=== PATIENT | female | born 2000 | race Caucasian/White ===

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

== ENCOUNTER → 2021-08-06 | Outpatient (CLI) | payer BC ==
--- NOTE | 2021-08-06 13:25 | Diagnostic Imaging Report ---
PROCEDURE: MR imaging of the brain without contrast. TECHNIQUE: Multiplanar, multisequence MR imaging of the brain was performed without contrast. INDICATION: Dizzy spells. Nausea. COMPARISON: 12/21/2020. FINDINGS: No acute ischemia, mass, or hemorrhage. The ventricles, cortical sulci, and basilar cisterns are symmetric and unremarkable. The sellar and suprasellar regions have a normal appearance. The posterior pituitary bright spot is visualized in its normal location. The major intracranial flow voids are intact. The brainstem and posterior fossa are unremarkable. No evidence of Chiari malformation. The paranasal sinuses and mastoid air cells demonstrate normal signal characteristics. The globes and orbits are symmetric and unremarkable. The scalp and calvarium have a normal appearance. IMPRESSION: 1. No acute ischemia, mass, or hemorrhage. No focal signal abnormalities. 2. No evidence of congenital structural abnormality in the brain. Dictated by: Dictated on workstation # [id number]
== END ==
LOC: RAD 12:26
PROVIDERS: ATTEND Family Medicine
DX: R10.84 Generalized abdominal pain (principal); R42 Dizziness and giddiness; R11.0 Nausea
CPT/HCPCS: 70551

== ENCOUNTER 2021-11-07 14:33 | Emergency (ER) | payer BC ==
[~2021-11-07] VITALS: Ht 162.5 cm; Wt 72.3 kg
--- NOTE | 2021-11-07 14:46 | ED General ---
General Stated Complaint: LOC, FAINTED AND HIT HEAD,VERTIGO,NAUSEA History of Present Illness Date Seen by Provider: Nov 07, 2021 Time Seen by Provider: 14:42 Initial Comments 21-year-old female presents with some mild dizziness, nausea. Patient reports that a couple days ago she was donating blood when she fainted and hit her head on the floor. She reports that since then she has had some mild dizziness gets worse when she stands up or moves her head. She is got some nausea. She denies any vomiting. She denies any recent illnesses. Allergies and Home Medications Allergies Coded Allergies: No Known Drug Allergies (Unverified , 12/21/20) Patient Home Medication List Home Medication List Reviewed: Yes Review of Systems Review of Systems Constitutional: No chills; dizziness; No fever Respiratory: No cough, No short of breath Gastrointestinal: No abdominal pain, No diarrhea; nausea; No vomiting Genitourinary: no symptoms reported Musculoskeletal: no symptoms reported Skin: no symptoms reported Psychiatric/Neurological: No Symptoms Reported Hematologic/Lymphatic: No Symptoms Reported Immunological/Allergic: no symptoms reported Past Gbniaqq-Admrdy-Odudju Hx Seasonal Allergies Seasonal Allergies: No Past Medical History Surgeries: No Respiratory: No Cardiac: No Neurological: No Genitourinary: No Gastrointestinal: No Musculoskeletal: No Endocrine: No HEENT: No Cancer: No Psychosocial: No Integumentary: No Blood Disorders: No Physical Exam Vital Signs Vital Signs - First Documented 11/07/21 14:40 Temp 37.0 Pulse 81 Resp 16 B/P (MAP) 133/75 (94) Pulse Ox 99 O2 Delivery Room Air Capillary Refill : Height, Weight, BMI Height: '" Weight: lbs. oz. 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 Skin: Normal Color, Warm/Dry Progress/Results/Core Measures Suspected Sepsis SIRS Temperature: Pulse: Respiratory Rate: Laboratory Tests 11/07/21 15:12: White Blood Count 10.2 Blood Pressure / Mean: Laboratory Tests 11/07/21 15:12: Creatinine 0.68, Platelet Count 346, Total Bilirubin 0.2 Results/Orders Lab Results Laboratory Tests Test 11/07/21 14:55 11/07/21 15:12 Range/Units Urine Color YELLOW Urine Clarity CLOUDY Urine pH 6.5 5-9 Urine Specific [place] 1.020 1.016-1.022 Urine Protein NEGATIVE NEGATIVE Urine Glucose (UA) NEGATIVE NEGATIVE Urine Ketones NEGATIVE NEGATIVE Urine Nitrite NEGATIVE NEGATIVE Urine Bilirubin NEGATIVE NEGATIVE Urine Urobilinogen 1.0 < = 1.0 MG/DL Urine Leukocyte Esterase TRACE H NEGATIVE Urine RBC (Auto) NEGATIVE NEGATIVE Urine RBC NONE /HPF Urine WBC 25-50 H /HPF Urine Squamous Epithelial Cells >50 H /HPF Urine Crystals NONE /LPF Urine Bacteria LARGE H /HPF Urine Casts NONE /LPF Urine Mucus NEGATIVE /LPF Urine Culture Indicated NO Urine Test NEGATIVE NEGATIVE White Blood Count 10.2 4.3-11.0 10^3/uL Red Blood Count 4.09 3.80-5.11 10^6/uL Hemoglobin 10.9 L 11.5-16.0 g/dL Hematocrit 34 L 35-52 % Mean Corpuscular Volume 82 80-99 fL Mean Corpuscular Hemoglobin 27 25-34 pg Mean Corpuscular Hemoglobin Concent 32 32-36 g/dL Red Cell Distribution Width 13.3 10.0-14.5 % Platelet Count 346 130-400 10^3/uL Mean Platelet Volume 11.3 9.0-12.2 fL Immature Granulocyte % (Auto) 0 % Neutrophils (%) (Auto) 74 42-75 % Lymphocytes (%) (Auto) 16 12-44 % Monocytes (%) (Auto) 8 0-12 % Eosinophils (%) (Auto) 1 0-10 % Basophils (%) (Auto) 1 0-10 % Neutrophils # (Auto) 7.5 1.8-7.8 10^3/uL Lymphocytes # (Auto) 1.7 1.0-4.0 10^3/uL Monocytes # (Auto) 0.8 0.0-1.0 10^3/uL Eosinophils # (Auto) 0.1 0.0-0.3 10^3/uL Basophils # (Auto) 0.1 0.0-0.1 10^3/uL Immature Granulocyte # (Auto) 0.0 0.0-0.1 10^3/uL Sodium Level 138 135-145 MMOL/L Potassium Level 4.0 3.6-5.0 MMOL/L Chloride Level 103 98-107 MMOL/L Carbon Dioxide Level 24 21-32 MMOL/L Anion Gap 11 5-14 MMOL/L Blood Urea Nitrogen 13 7-18 MG/DL Creatinine 0.68 0.60-1.30 MG/DL Estimat Glomerular Filtration Rate 128 BUN/Creatinine Ratio 19 Glucose Level 106 H 70-105 MG/DL Calcium Level 9.3 8.5-10.1 MG/DL Corrected Calcium 9.1 8.5-10.1 MG/DL Total Bilirubin 0.2 0.1-1.0 MG/DL Aspartate Amino Transf (AST/SGOT) 13 5-34 U/L Alanine Aminotransferase (ALT/SGPT) 9 0-55 U/L Alkaline Phosphatase 61 40-136 U/L Total Protein 7.4 6.4-8.2 GM/DL Albumin 4.3 3.2-4.5 GM/DL My Orders Orders - KAUR,TANIKA L DO Cbc With Automated Diff (11/07/21 14:49) Comprehensive Metabolic Panel (11/07/21 14:49) Hcg,Qualitative Urine (11/07/21 14:49) Ua Culture If Indicated (11/07/21 14:49) Ct Head Wo (11/07/21 14:49) Ondansetron Injection (Zofran Injectio (11/07/21 15:00) Lactated Ringers (Lr 1000 Ml Iv Solution (11/07/21 14:49) Medications Given in ED Current Medications Medications Dose Ordered Sig/Gomez Route Start Time Stop Time Status Last Admin Dose Admin Ondansetron HCl 4 mg ONCE ONCE IVP 11/07/21 15:00 11/07/21 15:01 DC 11/07/21 15:21 4 MG Vital Signs/I&O 11/07/21 11/07/21 14:40 15:45 Temp 37.0 37.0 Pulse 81 78 Resp 16 16 B/P (MAP) 133/75 (94) 127/75 Pulse Ox 99 99 O2 Delivery Room Air Room Air Capillary Refill : Progress Note : Progress Note Patient's physical exam shows no acute dehydration or findings. Patient's labs and CT are negative. I discussed with patient I suspect she passed a mild concussion following her fall. That she should be improving over the next few days to a week. If she does not improve or symptoms worsen she should follow-up with her primary care provider for recheck. Patient was stable and discharged home Diagnostic Imaging Diagonstic Imaging: CT Plain Films/CT/US/NM/MRI: head Comments Date of Exam:11/07/21 CT HEAD WO PROCEDURE: CT head without contrast. TECHNIQUE: Multiple contiguous axial images were obtained through the brain without the use of intravenous contrast. Auto Exposure Controls were utilized during the CT exam to meet ALARA standards for radiation dose reduction. INDICATION: Vertigo, dizziness, head pain and syncope following blood donation. It resulted in a fall striking the head. COMPARISON: CT compared with exam 12/21/2020. FINDINGS: There are no abnormal extra-axial fluid collections. There is no intracranial hemorrhage. No focal or generalized cerebral edema. No mass or mass effect. No evidence for an elevation of the intracranial pressures. Orbits, sinuses and calvarium are nonacute. The basilar cisterns are patent. There has been no change. IMPRESSION: No hemorrhage, fracture, edema or acute appearing abnormalities. Reviewed: Reviewed by Me, Reviewed/Discussed Departure Impression Primary Impression: Concussion Qualified Codes: S06.0X0A - Concussion without loss of consciousness, initial encounter Additional Impression: Vasovagal syncope Disposition: 01 HOME, SELF-CARE Condition: Stable Departure-Patient Inst. Referrals: MATIAS VANCE MD (PCP/Family) Primary Care Physician Patient Instructions: Concussion, Adult ED, Fainting, Adult ED, Minor Head Injury, Adult ED Add. Discharge Instructions: Drink plenty of fluids, Tylenol ibuprofen as needed Follow-up with your primary care provider if symptoms are not improving or starting to resolve over the next 5 to 7 days TANIKA KAUR DO Nov 07, 2021 14:46
[2021-11-07] MEDS ORDERED: LACTATED RINGERS 1,000 ML IV STA (14:49)
[2021-11-07] MEDS ORDERED: ONDANSETRON 4 MG/2 ML (SDV) Z0FRAN IVP ONE (15:00)
[2021-11-07 15:01] LABS: BILIRUBIN,URINE NEGATIVE (NEGATIVE); COLOR,URINE YELLOW; GLUCOSE, URINE (UA) NEGATIVE (NEGATIVE); KETONES,URINE NEGATIVE (NEGATIVE); LEUKOCYTE ESTERASE ,URINE TRACE (NEGATIVE); NITRITE,URINE NEGATIVE (NEGATIVE); PH,URINE 6.5 (5-9); PROTEIN,URINE NEGATIVE (NEGATIVE)
[2021-11-07 15:06] LABS: BACTERIA,URINE LARGE /HPF; CLARITY,URINE CLOUDY; SQUAMOUS EPITHELIAL CELL,UR >50 /HPF; WBC,URINE 25-50 /HPF
[2021-11-07 15:15] LABS: BASOPHILS # (AUTO) 0.1 10^3/uL (0.0-0.1); BASOPHILS % (AUTO) 1 % (0-10); EOSINOPHILS # (AUTO) 0.1 10^3/uL (0.0-0.3); EOSINOPHILS % (AUTO) 1 % (0-10); HEMATOCRIT 34 % (35-52); HEMOGLOBIN 10.9 g/dL (11.5-16.0); LYMPHOCYTES # (AUTO) 1.7 10^3/uL (1.0-4.0); LYMPHOCYTES % (AUTO) 16 % (12-44); MEAN CORPUSCULAR HEMOGLOBIN 27 pg (25-34); MEAN CORPUSCULAR HGB CONC 32 g/dL (32-36); MEAN CORPUSCULAR VOLUME 82 fL (80-99); MEAN PLATELET VOLUME 11.3 fL (9.0-12.2); MONOCYTES # (AUTO) 0.8 10^3/uL (0.0-1.0); MONOCYTES % (AUTO) 8 % (0-12); NEUTROPHILS # (AUTO) 7.5 10^3/uL (1.8-7.8); NEUTROPHILS % (AUTO) 74 % (42-75); PLATELET COUNT 346 10^3/uL (130-400); WHITE BLOOD COUNT 10.2 10^3/uL (4.3-11.0)
--- NOTE | 2021-11-07 15:16 | Diagnostic Imaging Report ---
PROCEDURE: CT head without contrast. TECHNIQUE: Multiple contiguous axial images were obtained through the brain without the use of intravenous contrast. Auto Exposure Controls were utilized during the CT exam to meet ALARA standards for radiation dose reduction. INDICATION: Vertigo, dizziness, head pain and syncope following blood donation. It resulted in a fall striking the head. COMPARISON: CT compared with exam 12/21/2020. FINDINGS: There are no abnormal extra-axial fluid collections. There is no intracranial hemorrhage. No focal or generalized cerebral edema. No mass or mass effect. No evidence for an elevation of the intracranial pressures. Orbits, sinuses and calvarium are nonacute. The basilar cisterns are patent. There has been no change. IMPRESSION: No hemorrhage, fracture, edema or acute appearing abnormalities. Dictated by: Dictated on workstation # [id number]
[2021-11-07 15:30] LABS: ALBUMIN 4.3 GM/DL (3.2-4.5); BILIRUBIN,TOTAL 0.2 MG/DL (0.1-1.0); CALCIUM 9.3 MG/DL (8.5-10.1); CREATININE SERUM 0.68 MG/DL (0.60-1.30); TOTAL PROTEIN 7.4 GM/DL (6.4-8.2)
[2021-11-07 15:45] VITALS: BP 127/75
== END 2021-11-07 15:42 | disposition home or self-care (01) ==
LOC: EDUNIT# 14:33 → ER FS 14:35
DX: S06.0X9A Concussion with loss of consciousness of unspecified duration, initial encounter (principal); R55 Syncope and collapse; Z32.02 Encounter for pregnancy test, result negative; W18.30XA Fall on same level, unspecified, initial encounter
CPT/HCPCS: 36415; 70450; 80053; 81000; 84703; 85025

== ENCOUNTER 2022-11-30 16:43 | Emergency (ER) | payer BC ==
[~2022-11-30] VITALS: Ht 162.5 cm; Wt 71.9 kg
[2022-11-30] MEDS ORDERED: ONDANSETRON 4 MG/2 ML (SDV) Z0FRAN IVP STA (16:49)
[2022-11-30] MEDS ORDERED: NS IV 1000 ML 1,000 ML IV SCH (17:00)
[2022-11-30] MEDS ORDERED: PANTOPRAZOLE 40 MG (PROTONIX) VIAL IV STA (17:14)
[2022-11-30] MEDS ORDERED: KETOROLAC 15 MG/ML VIAL IVP STA (17:14)
[2022-11-30 17:16] LABS: BASOPHILS # (AUTO) 0.1 10^3/uL (0.0-0.1); BASOPHILS % (AUTO) 0 % (0-10); EOSINOPHILS # (AUTO) 0.1 10^3/uL (0.0-0.3); EOSINOPHILS % (AUTO) 1 % (0-10); HEMATOCRIT 37 % (35-52); HEMOGLOBIN 11.6 g/dL (11.5-16.0); LYMPHOCYTES # (AUTO) 1.8 10^3/uL (1.0-4.0); LYMPHOCYTES % (AUTO) 15 % (12-44); MEAN CORPUSCULAR HEMOGLOBIN 25 pg (25-34); MEAN CORPUSCULAR HGB CONC 32 g/dL (32-36); MEAN CORPUSCULAR VOLUME 80 fL (80-99); MEAN PLATELET VOLUME 11.2 fL (9.0-12.2); MONOCYTES # (AUTO) 0.8 10^3/uL (0.0-1.0); MONOCYTES % (AUTO) 6 % (0-12); NEUTROPHILS # (AUTO) 9.9 10^3/uL (1.8-7.8); NEUTROPHILS % (AUTO) 78 % (42-75); PLATELET COUNT 369 10^3/uL (130-400); WHITE BLOOD COUNT 12.7 10^3/uL (4.3-11.0)
[2022-11-30 17:19] LABS: BILIRUBIN,URINE NEGATIVE (NEGATIVE); CLARITY,URINE CLEAR; COLOR,URINE YELLOW; GLUCOSE, URINE (UA) NEGATIVE (NEGATIVE); KETONES,URINE NEGATIVE (NEGATIVE); LEUKOCYTE ESTERASE ,URINE NEGATIVE (NEGATIVE); NITRITE,URINE NEGATIVE (NEGATIVE); PROTEIN,URINE NEGATIVE (NEGATIVE)
--- NOTE | 2022-11-30 17:22 | ED GI ---
General Chief Complaint: Abdominal/GI Problems Stated Complaint: VOMITING,SEVERE PAIN ABDOMEN,SHAKES,MUSCLES TENSE Source of Information: Patient History of Present Illness Date Seen by Provider: Nov 30, 2022 Time Seen by Provider: 17:00 Initial Comments 22-year-old female presenting with complaints of 2 days of vomiting and diarrhea. This afternoon she started having epigastric abdominal pain. She reports that when she does throw up and get abdominal pain she feels like her whole body tenses up and she starts shaking. She had seen some blood when she threw up yesterday. She states that her menstrual cycles are 5 to 6 months in between her periods. She states for the last few days she has had a foul smelling brown discharge instead of normal menses. Last menstrual period was 5 to 6 months ago. She states she started a new antidepressant about 2 weeks ago after stopping Prazosin about a month ago. She denies taking other prescription medicines. Severity/Quality: Severe, Cramping Location: Epigastric Radiation: No Radiation Activities at Onset: None Modifying Factors: Improves With Other (pain comes and goes without anything making it better or worse) Associated Symptoms: No Back Pain, No Chest Pain, No Diaphoresis, No Fever/Chi lls, No Headache, No Heartburn; Nausea/Vomiting; No Rash, No Shortness of Air, No Swelling/Mass in Abdomen, No Syncope; Weakness Allergies and Home Medications Allergies Coded Allergies: pseudoephedrine (Verified Allergy, Unknown, 11/30/22) Patient Home Medication List Home Medication List Reviewed: Yes Dicyclomine HCl (Dicyclomine HCl) 10 Mg Capsule, 10 MG PO Q6H PRN for abdominal pain Prescribed by: RADHA DE LA TORRE on 11/30/221937 Ondansetron (Ondansetron Odt) 4 Mg Tab.rapdis, 4 MG PO Q6H PRN for NAUSEA/VOMITING Prescribed by: RADHA DE LA TORRE on 11/30/221937 Pantoprazole Sodium (Pantoprazole Sodium) 40 Mg Tablet.dr, 40 MG PO DAILY Prescribed by: RADHA DE LA TORRE on 11/30/221937 Review of Systems Review of Systems Constitutional: No chills, No fever EENTM: No Symptoms Reported Respiratory: No Symptoms Reported Cardiovascular: No Symptoms Reported Gastrointestinal: See HPI Genitourinary: See HPI Musculoskeletal: no symptoms reported Skin: no symptoms reported Psychiatric/Neurological: Anxiety Past Npjlllf-Xquapc-Fcapeg Hx Immunizations Up To Date First/Initial COVID19 Vaccinat: Not currently vaccinated Seasonal Allergies Seasonal Allergies: No Past Medical History Surgery/Hospitalization HX: Depression/Anxiety Surgeries: No Respiratory: No Cardiac: No Neurological: No Genitourinary: No Gastrointestinal: No Musculoskeletal: No Endocrine: No HEENT: No Cancer: No Psychosocial: No Integumentary: No Blood Disorders: No Physical Exam Vital Signs Vital Signs - First Documented 11/30/22 17:15 Temp 36.9 Pulse 81 Resp 18 B/P (MAP) 144/90 (108) Pulse Ox 100 O2 Delivery Room Air Capillary Refill : Height/Weight/BMI Height: '" Weight: lbs. oz. kg; 27.00 BMI Method: General Appearance: WD/WN, no apparent distress HEENT: PERRL/EOMI, pharynx normal Neck: non-tender, full range of motion, supple, normal inspection Respiratory: chest non-tender, lungs clear, normal breath sounds, no respiratory distress, no accessory muscle use Cardiovascular: normal peripheral pulses, regular rate, rhythm Gastrointestinal: normal bowel sounds, non tender, soft, no pulsatile mass Rectal: deferred Extremities: normal range of motion, non-tender, normal capillary refill Neurologic/Psychiatric: alert, oriented x 3 Skin: normal color, warm/dry Progress/Results/Core Measures Results/Orders Lab Results Laboratory Tests Test 11/30/22 17:05 11/30/22 17:10 Range/Units Urine Color YELLOW Urine Clarity CLEAR Urine pH 7.0 5-9 Urine Specific [place] 1.010 L 1.016-1.022 Urine Protein NEGATIVE NEGATIVE Urine Glucose (UA) NEGATIVE NEGATIVE Urine Ketones NEGATIVE NEGATIVE Urine Nitrite NEGATIVE NEGATIVE Urine Bilirubin NEGATIVE NEGATIVE Urine Urobilinogen 0.2 < = 1.0 MG/DL Urine Leukocyte Esterase NEGATIVE NEGATIVE Urine RBC (Auto) TRACE-I H NEGATIVE Urine RBC RARE /HPF Urine WBC NONE /HPF Urine Squamous Epithelial Cells 0-2 /HPF Urine Crystals NONE /LPF Urine Bacteria NEGATIVE /HPF Urine Casts NONE /LPF Urine Mucus NEGATIVE /LPF Urine Culture Indicated NO Urine Opiates Screen NEGATIVE NEGATIVE Urine Oxycodone Screen NEGATIVE NEGATIVE Urine Methadone Screen NEGATIVE NEGATIVE Urine Propoxyphene Screen NEGATIVE NEGATIVE Urine Barbiturates Screen NEGATIVE NEGATIVE Ur Tricyclic Antidepressants Screen NEGATIVE NEGATIVE Urine Phencyclidine Screen NEGATIVE NEGATIVE Urine Amphetamines Screen NEGATIVE NEGATIVE Urine Methamphetamines Screen NEGATIVE NEGATIVE Urine Benzodiazepines Screen NEGATIVE NEGATIVE Urine Cocaine Screen NEGATIVE NEGATIVE Urine Cannabinoids Screen POSITIVE H NEGATIVE White Blood Count 12.7 H 4.3-11.0 10^3/uL Red Blood Count 4.59 3.80-5.11 10^6/uL Hemoglobin 11.6 11.5-16.0 g/dL Hematocrit 37 35-52 % Mean Corpuscular Volume 80 80-99 fL Mean Corpuscular Hemoglobin 25 25-34 pg Mean Corpuscular Hemoglobin Concent 32 32-36 g/dL Red Cell Distribution Width 15.9 H 10.0-14.5 % Platelet Count 369 130-400 10^3/uL Mean Platelet Volume 11.2 9.0-12.2 fL Immature Granulocyte % (Auto) 1 % Neutrophils (%) (Auto) 78 H 42-75 % Lymphocytes (%) (Auto) 15 12-44 % Monocytes (%) (Auto) 6 0-12 % Eosinophils (%) (Auto) 1 0-10 % Basophils (%) (Auto) 0 0-10 % Neutrophils # (Auto) 9.9 H 1.8-7.8 10^3/uL Lymphocytes # (Auto) 1.8 1.0-4.0 10^3/uL Monocytes # (Auto) 0.8 0.0-1.0 10^3/uL Eosinophils # (Auto) 0.1 0.0-0.3 10^3/uL Basophils # (Auto) 0.1 0.0-0.1 10^3/uL Immature Granulocyte # (Auto) 0.1 0.0-0.1 10^3/uL Sodium Level 140 135-145 MMOL/L Potassium Level 4.0 3.6-5.0 MMOL/L Chloride Level 104 98-107 MMOL/L Carbon Dioxide Level 25 21-32 MMOL/L Anion Gap 11 5-14 MMOL/L Blood Urea Nitrogen 10 7-18 MG/DL Creatinine 0.81 0.60-1.30 MG/DL Estimat Glomerular Filtration Rate 106 BUN/Creatinine Ratio 12 Glucose Level 91 70-105 MG/DL Calcium Level 9.8 8.5-10.1 MG/DL Corrected Calcium 8.5-10.1 MG/DL Magnesium Level 2.0 1.6-2.4 MG/DL Total Bilirubin 0.2 0.1-1.0 MG/DL Aspartate Amino Transf (AST/SGOT) 20 5-34 U/L Alanine Aminotransferase (ALT/SGPT) 15 0-55 U/L Alkaline Phosphatase 56 40-136 U/L Total Protein 8.1 6.4-8.2 GM/DL Albumin 4.8 H 3.2-4.5 GM/DL Lipase 24 8-78 U/L Acetaminophen Level < 10 L 10-30 UG/ML Serum Alcohol < 10 <10 MG/DL My Orders Orders - RADHA DE LA TORRE MD Ua Culture If Indicated (11/30/22 16:49) Cbc With Automated Diff (11/30/22 16:49) Comprehensive Metabolic Panel (11/30/22 16:49) Alcohol (11/30/22 16:49) Drug Screen Stat (Urine) (11/30/22 16:49) Acetaminophen (11/30/22 16:49) Ed Iv/Invasive Line Start (11/30/22 16:49) Ns Iv 1000 Ml (Sodium Chloride 0.9%) (11/30/22 17:00) Urine Bedside (11/30/22 16:49) Lipase (11/30/22 16:49) Ondansetron Injection (Zofran Injectio (11/30/22 16:49) Pantoprazole Injection (Protonix Injecti (11/30/22 17:14) Ketorolac Injection (Toradol Injection) (11/30/22 17:14) Ct Abdomen/Pelvis W (11/30/22 17:15) Magnesium (11/30/22 17:16) Iohexol Injection (Omnipaque 350 Mg/Ml 1 (11/30/22 18:15) Received Contrast (Hold Metformin- Contr (11/30/22 18:15) Ns (Ivpb) (Sodium Chloride 0.9% Ivpb Bag (11/30/22 18:15) Rx-Dicyclomine Capsule (Rx-Bentyl Capsul (11/30/22 19:45) Rx-Ondansetron Po (Rx-Zofran Po) (11/30/22 19:45) Medications Given in ED Current Medications Medications Dose Ordered Sig/Gomez Route Start Time Stop Time Status Last Admin Dose Admin Dicyclomine HCl 10 mg Q6H PRN PO 11/30/22 19:45 11/30/22 19:49 DC 11/30/22 19:45 10 MG Iohexol 100 ml ONCE ONCE IV 11/30/22 18:15 11/30/22 18:16 DC 11/30/22 18:08 75 ML Ondansetron HCl 4 mg Q6H PRN PO 11/30/22 19:45 11/30/22 19:49 DC 11/30/22 19:45 4 MG Sodium Chloride 100 ml ONCE ONCE IV 11/30/22 18:15 11/30/22 18:16 DC 11/30/22 18:08 100 ML Vital Signs/I&O 11/30/22 11/30/22 17:15 19:49 Temp 36.9 Pulse 81 73 Resp 18 18 B/P (MAP) 144/90 (108) 133/75 Pulse Ox 100 100 O2 Delivery Room Air Room Air Progress Progress Note #1: Progress Note Potential diagnosis of gastritis, peptic ulcer disease, gastroenteritis, viral syndrome, colitis, diverticulitis, pyelonephritis, . obtain peripheral IV access and send labs for complete blood count, comprehensive metabolic profile, lipase, urine drug screen, urinalysis, alcohol, acetaminophen, magnesium. Urine bedside test. CT scan of the abdomen pelvis with IV contrast to evaluate for acute pathology in the belly. Administer normal saline 1 L IV fluid bolus for hydration, Toradol 15 mg IV for pain, pantoprazole 40 mg IV for possible gastritis, Zofran 4 mg IV for nausea and vomiting. Progress Note #2: Progress Note Patient was having No acute significant abnormality on complete blood count or comprehensive metabolic profile to account for symptoms. Her urinalysis was very dilute and did not show signs of infection. Her CT scan of the abdomen and pelvis was negative for acute process. Encourage follow-up with primary care and may need to see a surgeon on-call about possible EGD or scope done to look for signs of pain. Advised that she can use [id number] antacids or fill the prescription for Protonix 40 mg once a day. Use the Zofran dissolving tablets to help with severe nausea and vomiting. For abdominal cramping and spasms try the Bentyl or dicyclomine 10 mg every 6 hours as needed. Diagnostic Imaging Diagonstic Imaging: CT Plain Films/CT/US/NM/MRI: abdomen, pelvis Comments [facility], [place] NAME: SEKOU DO [facility] REC#: [id number] PT STATUS: REG ER : 2000 PHYSICIAN: RADHA DE LA TORRE MD ADMIT DATE: 11/30/22/ER FS Signed Date of Exam:11/30/22 CT ABDOMEN/PELVIS W PROCEDURE: CT abdomen and pelvis with contrast. TECHNIQUE: Multiple contiguous axial images were obtained through the abdomen and pelvis after administration of intravenous contrast. Auto Exposure Controls were utilized during the CT exam to meet ALARA standards for radiation dose reduction. All CT scans use one or more of the following dose optimizing techniques: automated exposure control, MA and/or KvP adjustment based on patient size and exam type or iterative reconstruction. INDICATION: Abdominal pain with nausea and vomiting and diarrhea. COMPARISON: No prior studies are available for comparison. FINDINGS: Lung bases are clear. Liver and gallbladder are unremarkable. There is no biliary ductal dilatation. Pancreas and spleen are unremarkable. No adrenal mass is detected. Kidneys are unremarkable. There is no hydronephrosis. Aorta is nonaneurysmal. The small and large bowel loops are normal in caliber. There is no evidence of obstruction. Bladder is unremarkable. The uterus and ovaries appear unremarkable. There is no free fluid. No inflammatory changes are identified. IMPRESSION: Unremarkable CT of the abdomen and pelvis with contrast. No acute features detected. Dictated by: Dictated on workstation # [id number] Dict: 11/30/224 Trans: 11/30/224 AS6 [id number] Interpreted by: ANDREW BAILEY MD Electronically signed by: ANDREW BAILEY MD 11/30/22 1844 Reviewed: Reviewed by Me Departure Impression Primary Impression: Epigastric abdominal pain Additional Impression: Nausea vomiting and diarrhea Disposition: 01 HOME, SELF-CARE Condition: Stable Departure-Patient Inst. Decision time for Depature: 19:34 Referrals: MATIAS VANCE MD (PCP/Family) Primary Care Physician Patient Instructions: Nausea and Vomiting, Adult ED, Gastritis ED, Abdominal Pain, Adult ED Add. Discharge Instructions: Try to stay well-hydrated and follow a bland or liquid diet for the next 24 hours Hope your stomach settled. Take the medications to help with nausea as well as abdominal spasms and cramping. Take the acid reducing medicine in case this is related to gastritis or an ulcer. Follow-up through the clinic or with the surgeon as you may need to have a scope to look for ulcers or inflammation inside the stomach or colon. All discharge instructions reviewed with patient and/or family. Voiced understanding. Scripts Pantoprazole Sodium (Pantoprazole Sodium) 40 Mg Tablet.dr 40 MG PO DAILY for 30 Days, #30 TAB 0 Refills Prov: RADHA DE LA TORRE MD 11/30/22 Ondansetron (Ondansetron Odt) 4 Mg Tab.rapdis 4 MG PO Q6H PRN for NAUSEA/VOMITING for 3 Days, #12 TAB 0 Refills Prov: RADHA DE LA TORRE MD 11/30/22 Dicyclomine HCl (Dicyclomine HCl) 10 Mg Capsule 10 MG PO Q6H PRN for abdominal pain for 15 Days, #60 CAP 0 Refills Prov: RADHA DE LA TORRE MD 11/30/22 Work/School Note: Work Release Form Date Seen in the Emergency Department: Nov 30, 2022 Return to Work: Dec 01, 2022 Restrictions: Return-No Vomiting(24hrs) RADHA DE LA TORRE MD Nov 30, 2022 17:22
[2022-11-30 17:29] LABS: AMPHETAMINE SCREEN, URINE NEGATIVE (NEGATIVE); BARBITURATE SCREEN URINE NEGATIVE (NEGATIVE); BENZODIAZEPINES SCREEN URINE NEGATIVE (NEGATIVE); CANNABINOID SCREEN, URINE POSITIVE (NEGATIVE); COCAINE SCREEN URINE NEGATIVE (NEGATIVE); METHADONE STAT NEGATIVE (NEGATIVE); OPIATE SCREEN URINE NEGATIVE (NEGATIVE); OXYCODONE STAT NEGATIVE (NEGATIVE); PROPOXYPHENE STAT NEGATIVE (NEGATIVE); TRICYCLIC ANTIDEPRESSANTS SCRE NEGATIVE (NEGATIVE)
[2022-11-30 17:30] LABS: BACTERIA,URINE NEGATIVE /HPF; RBC,URINE RARE /HPF; SQUAMOUS EPITHELIAL CELL,UR 0-2 /HPF
[2022-11-30 17:42] LABS: BUN/CREATININE RATIO 12; CALCIUM 9.8 MG/DL (8.5-10.1); CARBON DIOXIDE 25 MMOL/L (21-32); CHLORIDE 104 MMOL/L (98-107); CREATININE SERUM 0.81 MG/DL (0.60-1.30); GFR ESTIMATED 106; GLUCOSE 91 MG/DL (70-105); SODIUM 140 MMOL/L (135-145)
[2022-11-30 17:43] LABS: ACETAMINOPHEN < 10 UG/ML (10-30); ALANINE AMINOTRANSFERASE 15 U/L (0-55); ALBUMIN 4.8 GM/DL (3.2-4.5); ALKALINE PHOSPHATASE 56 U/L (40-136); BILIRUBIN,TOTAL 0.2 MG/DL (0.1-1.0); TOTAL PROTEIN 8.1 GM/DL (6.4-8.2)
[2022-11-30] MEDS ORDERED: HOLD METFORMIN - RECEIVED CONTRAST 20 ML VIAL IV SCH (18:15)
[2022-11-30] MEDS ORDERED: IOHEXOL 350 MG/ML 100 ML (OMNIPAQUE 350) VIAL IV ONE (18:15)
[2022-11-30] MEDS ORDERED: NS 100 ML (IVPB) BAG IV ONE (18:15)
--- NOTE | 2022-11-30 18:22 | Diagnostic Imaging Report ---
PROCEDURE: CT abdomen and pelvis with contrast. TECHNIQUE: Multiple contiguous axial images were obtained through the abdomen and pelvis after administration of intravenous contrast. Auto Exposure Controls were utilized during the CT exam to meet ALARA standards for radiation dose reduction. All CT scans use one or more of the following dose optimizing techniques: automated exposure control, MA and/or KvP adjustment based on patient size and exam type or iterative reconstruction. INDICATION: Abdominal pain with nausea and vomiting and diarrhea. COMPARISON: No prior studies are available for comparison. FINDINGS: Lung bases are clear. Liver and gallbladder are unremarkable. There is no biliary ductal dilatation. Pancreas and spleen are unremarkable. No adrenal mass is detected. Kidneys are unremarkable. There is no hydronephrosis. Aorta is nonaneurysmal. The small and large bowel loops are normal in caliber. There is no evidence of obstruction. Bladder is unremarkable. The uterus and ovaries appear unremarkable. There is no free fluid. No inflammatory changes are identified. IMPRESSION: Unremarkable CT of the abdomen and pelvis with contrast. No acute features detected. Dictated by: Dictated on workstation # [id number]
[2022-11-30] MEDS ORDERED: PANT40TA52 PO (19:38)
[2022-11-30] MEDS ORDERED: ONDA4TAB11 PO (19:38)
[2022-11-30] MEDS ORDERED: DICY10CA12 PO (19:38)
[2022-11-30] MEDS ORDERED: RX-DICYCLOMINE 10 MG (BENTYL) CAP PPK#4 PO PRN (19:45)
[2022-11-30] MEDS ORDERED: RX-ONDANSETRON 4 MG ODT (ZOFRAN) PPK #4 PO PRN (19:45)
[2022-11-30 19:49] VITALS: BP 133/75
== END 2022-11-30 19:48 | disposition home or self-care (01) ==
LOC: EDUNIT# 16:43 → ER FS 16:45
DX: R10.13 Epigastric pain (principal); R11.2 Nausea with vomiting, unspecified; R19.7 Diarrhea, unspecified; Z28.310 Unvaccinated for COVID-19
CPT/HCPCS: 36415; 74177; 80053; 80306; 81000; 83690; 83735; 84703; 85025; 99284; G0480 ×2; 80320; 80329; Q9967

== ENCOUNTER 2022-12-27 09:33 | Emergency (ER) | payer BC ==
[~2022-12-27 09:33] MED LIST: DICY10CA12 PO; ONDA4TAB11 PO; PANT40TA52 PO
[2022-12-27] MEDS ORDERED: ONDA8TAB13 SL (09:54)
--- NOTE | 2022-12-27 09:55 | ED GI ---
General Chief Complaint: Abdominal/GI Problems Stated Complaint: VOMITING Nursing Triage Note: PT REPORTS SHE STARTED VOMITING UNDIGESTED FOOD, THEN BILE, THEN THE WATER SHE WAS DRINKING AT ABOUT 2100 LAST PM. SHE HAS NOT TAKEN ANYTHING FOR THE VOMITING. Source of Information: Patient, Family (MOTHER) Exam Limitations: No Limitations History of Present Illness Date Seen by Provider: Dec 27, 2022 Time Seen by Provider: 09:45 Initial Comments 22-year-old female who is otherwise healthy presents to the emergency department today for nausea and vomiting. Symptoms started at 9 PM last night and have been persistent through the evening. Emesis is nonbloody nonbilious. She has had this happen to her several times in the past. She states the last time she was here they gave her nausea medicine but she ran out. She was supposed to schedule appointment for endoscopy follow-up but states the appointment has been rescheduled a couple of times when she has not yet made it. She denies any fevers or chills. No abdominal pain. She is currently on her menstrual cycle. No urinary symptoms. All other systems reviewed and negative except documented per HPI. Voice recognition software was used to help create this chart Allergies and Home Medications Allergies Coded Allergies: pseudoephedrine (Verified Allergy, Unknown, 11/30/22) Patient Home Medication List Home Medication List Reviewed: Yes Dicyclomine HCl (Dicyclomine HCl) 10 Mg Capsule, 10 MG PO Q6H PRN for abdominal pain Prescribed by: RADHA DE LA TORRE on 11/30/221937 Ondansetron (Ondansetron Odt) 4 Mg Tab.rapdis, 4 MG PO Q6H PRN for NAUSEA/VOMITING Prescribed by: RADHA DE LA TORRE on 11/30/221937 Pantoprazole Sodium (Pantoprazole Sodium) 40 Mg Tablet.dr, 40 MG PO DAILY Prescribed by: RADHA DUNHAMRT on 11/30/221937 Review of Systems Review of Systems Constitutional: see HPI Past Ongwohz-Vzqlvs-Ggstcx Hx Patient Social History Tobacco Use?: No Use of E-Cig and/or Vaping dev: Yes E-Cig or Vaping type used: Nicotine, Marijuana Use of E-Cig and/or Vaping Jesus: Current Everyday User Substance use?: No Alcohol Use?: Yes Alcohol Frequency: Once in a while Pt feels they are or have been: No Immunizations Up To Date First/Initial COVID19 Vaccinat: Not currently vaccinated Second COVID19 Vaccination Melvin: Not currently vaccinated Third COVID19 Vaccination Date: Not currently vaccinated Seasonal Allergies Seasonal Allergies: No Past Medical History Surgery/Hospitalization HX: Depression/Anxiety Surgeries: No Respiratory: No Cardiac: No Neurological: No Genitourinary: No Gastrointestinal: No Musculoskeletal: No Endocrine: No HEENT: No Cancer: No Psychosocial: No Integumentary: No Blood Disorders: No Family Medical History Reviewed Nursing Family Hx No Pertinent Family Hx Physical Exam Vital Signs Vital Signs - First Documented 12/27/22 09:35 Temp 36.8 Pulse 76 Resp 16 B/P (MAP) 131/81 (98) Pulse Ox 100 O2 Delivery Room Air Capillary Refill : Less Than 3 Seconds Height/Weight/BMI Height: '" Weight: lbs. oz. kg; 27.00 BMI Method: General Appearance: WD/WN, no apparent distress HEENT: normal ENT inspection, pharynx normal Neck: full range of motion, supple Respiratory: chest non-tender, lungs clear, normal breath sounds, no respiratory distress, no accessory muscle use Cardiovascular: regular rate, rhythm, no edema, no murmur Gastrointestinal: normal bowel sounds, non tender, soft, no organomegaly Neurologic/Psychiatric: alert, oriented x 3 Skin: normal color, warm/dry Progress/Results/Core Measures Results/Orders My Orders Orders - RAJI VÁSQUEZ DO Diphenhydramine Injection (Benadryl Inje (12/27/22 10:00) Ondansetron Injection (Zofran Injectio (12/27/22 10:00) Vital Signs/I&O 12/27/22 09:35 Temp 36.8 Pulse 76 Resp 16 B/P (MAP) 131/81 (98) Pulse Ox 100 O2 Delivery Room Air Blood Pressure Mean: 98 Departure Communication (Admissions) Patient is hemodynamically stable. No abdominal pain and a normal exam otherwise. Vital signs are normal. No vomiting while she has been here. She is given IM Benadryl and IM Zofran and discharged with p.o. Zofran to go home. Recommended follow-up with general surgery for the previously mentioned endoscopy. No indication for imaging, IV fluids or labs at this time. Bedside test is negative. Impression Primary Impression: Vomiting Qualified Codes: R11.2 - Nausea with vomiting, unspecified Disposition: HOME, SELF-CARE Condition: Stable Departure-Patient Inst. Referrals: JOSE MARCELO APRN (PCP) Primary Care Physician [facility] (Family) Primary Care Physician STEPHANY HUBER DO Patient Instructions: Nausea and Vomiting, Adult Scripts Ondansetron (Ondansetron Odt) 8 Mg Tab.rapdis 8 MG SL Q6H PRN for NAUSEA/VOMITING for 10 Days, #40 TAB Prov: RAJI VÁSQUEZ DO 12/27/22 RAJI VÁSQUEZ DO Dec 27, 2022 09:55
[2022-12-27] MEDS ORDERED: diphenhydrAMINE 50 MG/ML INJ (BENADRYL) IM ONE (10:00)
[2022-12-27] MEDS ORDERED: ONDANSETRON 4 MG/2 ML (SDV) Z0FRAN IM ONE (10:00)
[2022-12-27 10:02] VITALS: BP 131/81
== END 2022-12-27 10:03 | disposition home or self-care (01) ==
LOC: EDUNIT# 09:33 → ER FS 09:34
DX: R11.2 Nausea with vomiting, unspecified (principal); F17.290 Nicotine dependence, other tobacco product, uncomplicated; Z28.310 Unvaccinated for COVID-19
CPT/HCPCS: 84703; 99284

== ENCOUNTER 2022-12-27 17:38 | Emergency (ER) | payer BC ==
[~2022-12-27 17:38] MED LIST changes: +ONDA8TAB13 SL
--- NOTE | 2022-12-27 17:47 | ED General ---
General Chief Complaint: General Problems/Pain Stated Complaint: MEMORY LOSS Source of Information: Patient, Family (mother) Exam Limitations: No Limitations History of Present Illness Date Seen by Provider: Dec 27, 2022 Time Seen by Provider: 17:36 Initial Comments 22-year-old female presents to the emergency department today for "memory loss." Mother states she did not remember just that she gave her years ago and seems slightly confused this afternoon at about 4:00. Notably she was seen in our emergency department this morning for nausea and vomiting which is a chronic problem for her. She was given IM Benadryl and IM Zofran. Mother is concerned because she recently started back on mirtazapine. She usually takes it in the evening but she states she is already taken her dose today, though she does not remember taking it. Fevers chills or neck stiffness. She has had nausea that has continued but she has not vomited since she was seen this morning. All other systems reviewed and negative except documented per HPI. Voice recognition software was used to help create this chart Allergies and Home Medications Allergies Coded Allergies: pseudoephedrine (Verified Allergy, Unknown, 11/30/22) Patient Home Medication List Home Medication List Reviewed: Yes Dicyclomine HCl (Dicyclomine HCl) 10 Mg Capsule, 10 MG PO Q6H PRN for abdominal pain Prescribed by: RADHA DE LA TORRE on 11/30/221937 Ondansetron (Ondansetron Odt) 4 Mg Tab.rapdis, 4 MG PO Q6H PRN for NAUSEA/VOMITING Prescribed by: RADHA DUNHAMRT on 11/30/221937 Ondansetron (Ondansetron Odt) 8 Mg Tab.rapdis, 8 MG SL Q6H PRN for NAUSEA/VOMITING Prescribed by: RAJI VÁSQUEZ MD on 12/27/22 0954 Pantoprazole Sodium (Pantoprazole Sodium) 40 Mg Tablet.dr, 40 MG PO DAILY Prescribed by: RADHA DE LA TORRE on 11/30/221937 Review of Systems Review of Systems Constitutional: see HPI Past Cluftnt-Cmtqcq-Rsrqzi Hx Patient Social History Tobacco Use?: No Use of E-Cig and/or Vaping dev: Yes E-Cig or Vaping type used: Nicotine, Marijuana Substance use?: No Alcohol Use?: Yes Alcohol Frequency: Once in a while Pt feels they are or have been: No Immunizations Up To Date First/Initial COVID19 Vaccinat: Not currently vaccinated Second COVID19 Vaccination Melvin: Not currently vaccinated Third COVID19 Vaccination Date: Not currently vaccinated Seasonal Allergies Seasonal Allergies: No Past Medical History Surgery/Hospitalization HX: Depression/Anxiety Surgeries: No Respiratory: No Cardiac: No Neurological: No Genitourinary: No Gastrointestinal: No Musculoskeletal: No Endocrine: No HEENT: No Cancer: No Psychosocial: No Integumentary: No Blood Disorders: No Family Medical History No Pertinent Family Hx Physical Exam Vital Signs Vital Signs - First Documented 12/27/22 17:40 Temp 36.1 Pulse 89 Resp 16 B/P (MAP) 158/95 (116) Pulse Ox 100 O2 Delivery Room Air Capillary Refill : Height, Weight, BMI Height: '" Weight: lbs. oz. kg; 27.00 BMI Method: General Appearance: No Apparent Distress, WD/WN HEENT: PERRL/EOMI, TMs Normal, Normal ENT Inspection, Pharynx Normal Neck: Full Range of Motion, Normal Inspection, Non Tender, Supple Respiratory: Chest Non Tender, Lungs Clear, Normal Breath Sounds, No Accessory Muscle Use, No Respiratory Distress Cardiovascular: Regular Rate, Rhythm, No Murmur Gastrointestinal: Normal Bowel Sounds, No Organomegaly, No Pulsatile Mass, Non Tender, Soft Extremity: Normal Capillary Refill, Normal Inspection, Normal Range of Motion, Non Tender, No Calf Tenderness Neurologic/Psychiatric: Alert, Oriented x3, No Motor/Sensory Deficits, Normal Mood/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, 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 as Tested Skin: Normal Color, Warm/Dry Progress/Results/Core Measures Suspected Sepsis SIRS Temperature: Pulse: Respiratory Rate: Laboratory Tests 12/27/22 17:50: White Blood Count 12.3H Blood Pressure / Mean: Laboratory Tests 12/27/22 17:50: Creatinine 0.69, Platelet Count 386 Results/Orders Lab Results Laboratory Tests Test 12/27/22 17:50 Range/Units White Blood Count 12.3 H 4.3-11.0 10^3/uL Red Blood Count 4.69 3.80-5.11 10^6/uL Hemoglobin 11.5 11.5-16.0 g/dL Hematocrit 37 35-52 % Mean Corpuscular Volume 80 80-99 fL Mean Corpuscular Hemoglobin 25 25-34 pg Mean Corpuscular Hemoglobin Concent 31 L 32-36 g/dL Red Cell Distribution Width 15.8 H 10.0-14.5 % Platelet Count 386 130-400 10^3/uL Mean Platelet Volume 11.0 9.0-12.2 fL Immature Granulocyte % (Auto) 1 % Neutrophils (%) (Auto) 73 42-75 % Lymphocytes (%) (Auto) 17 12-44 % Monocytes (%) (Auto) 9 0-12 % Eosinophils (%) (Auto) 1 0-10 % Basophils (%) (Auto) 0 0-10 % Neutrophils # (Auto) 9.0 H 1.8-7.8 10^3/uL Lymphocytes # (Auto) 2.1 1.0-4.0 10^3/uL Monocytes # (Auto) 1.1 H 0.0-1.0 10^3/uL Eosinophils # (Auto) 0.1 0.0-0.3 10^3/uL Basophils # (Auto) 0.0 0.0-0.1 10^3/uL Immature Granulocyte # (Auto) 0.1 0.0-0.1 10^3/uL Sodium Level 138 135-145 MMOL/L Potassium Level 3.5 L 3.6-5.0 MMOL/L Chloride Level 103 98-107 MMOL/L Carbon Dioxide Level 24 21-32 MMOL/L Anion Gap 11 5-14 MMOL/L Blood Urea Nitrogen 9 7-18 MG/DL Creatinine 0.69 0.60-1.30 MG/DL Estimat Glomerular Filtration Rate 127 BUN/Creatinine Ratio 13 Glucose Level 111 H 70-105 MG/DL Calcium Level 8.9 8.5-10.1 MG/DL My Orders Orders - RAJI VÁSQUEZ DO Cbc With Automated Diff (12/27/22 17:47) Basic Metabolic Panel (12/27/22 17:47) Vital Signs/I&O 12/27/22 17:40 Temp 36.1 Pulse 89 Resp 16 B/P (MAP) 158/95 (116) Pulse Ox 100 O2 Delivery Room Air Capillary Refill : Departure Communication (Admissions) Patient is hemodynamically stable. Labs are normal outside of very mild hypok alemia, 3.5. She is alert, oriented and not confused here. I think her symptoms are likely combination of mirtazapine and Benadryl. She does appear to have taken directly and she was supposed to she states she may have smoked marijuana with this as well but does not recall. Regardless there is no indication for an emergent medical condition at this time she will be discharged in stable condition with close follow-up. Impression Primary Impression: Confusion Disposition: 01 HOME, SELF-CARE Condition: Stable Departure-Patient Inst. Referrals: JOSE MARCELO APRN (PCP) Primary Care Physician [facility] (Family) Primary Care Physician Add. Discharge Instructions: There is no indication of emergent medical condition at this time. I think your symptoms are combination of Benadryl plus mirtazapine. Increase your fluids at home, ice. Do not take mirtazapine tonight. Return to the emergency department for any severe concerns. Follow-up with your primary doctor for any nonemergent needs. All discharge instructions reviewed with patient and/or family. Voiced understanding. RAJI VÁSQUEZ DO Dec 27, 2022 17:47
[2022-12-27 18:00] LABS: BASOPHILS % (AUTO) 0 % (0-10); EOSINOPHILS # (AUTO) 0.1 10^3/uL (0.0-0.3); EOSINOPHILS % (AUTO) 1 % (0-10); HEMATOCRIT 37 % (35-52); HEMOGLOBIN 11.5 g/dL (11.5-16.0); LYMPHOCYTES # (AUTO) 2.1 10^3/uL (1.0-4.0); LYMPHOCYTES % (AUTO) 17 % (12-44); MEAN CORPUSCULAR HEMOGLOBIN 25 pg (25-34); MEAN CORPUSCULAR HGB CONC 31 g/dL (32-36); MEAN CORPUSCULAR VOLUME 80 fL (80-99); MONOCYTES # (AUTO) 1.1 10^3/uL (0.0-1.0); MONOCYTES % (AUTO) 9 % (0-12); NEUTROPHILS % (AUTO) 73 % (42-75); PLATELET COUNT 386 10^3/uL (130-400); WHITE BLOOD COUNT 12.3 10^3/uL (4.3-11.0)
[2022-12-27 18:20] LABS: CALCIUM 8.9 MG/DL (8.5-10.1); CREATININE SERUM 0.69 MG/DL (0.60-1.30); POTASSIUM 3.5 MMOL/L (3.6-5.0)
[2022-12-27 18:25] VITALS: BP 158/95
== END 2022-12-27 18:25 | disposition home or self-care (01) ==
LOC: EDUNIT# 17:38 → ER FS 17:40
DX: R41.0 Disorientation, unspecified (principal); E87.6 Hypokalemia; R11.2 Nausea with vomiting, unspecified; F17.290 Nicotine dependence, other tobacco product, uncomplicated; Z28.310 Unvaccinated for COVID-19
CPT/HCPCS: 36415; 80048; 85025

== ENCOUNTER 2023-06-22 19:54 | Emergency (ER) | payer BC ==
[~2023-06-22] VITALS: Ht 162 cm; Wt 69.5 kg
[~2023-06-22 19:54] MED LIST changes: +DICY-11 PO; -DICY10CA12 PO
[2023-06-22 20:06] VITALS: BP 136/102
[2023-06-22] MEDS ORDERED: NS IV 1000 ML 1,000 ML IV STA (20:11)
[2023-06-22] MEDS ORDERED: ONDANSETRON INJECTION 4 MG/2 ML (SDV) IVP STA (20:11)
[2023-06-22] MEDS ORDERED: KETOROLAC INJ 15 MG/ML VIAL IVP STA (20:11)
[2023-06-22 20:21] LABS: BASOPHILS # (AUTO) 0.1 10^3/uL (0.0-0.1); BASOPHILS % (AUTO) 0 % (0-10); EOSINOPHILS # (AUTO) 0.1 10^3/uL (0.0-0.3); EOSINOPHILS % (AUTO) 1 % (0-10); HEMATOCRIT 41 % (35-52); HEMOGLOBIN 12.7 g/dL (11.5-16.0); LYMPHOCYTES # (AUTO) 1.5 10^3/uL (1.0-4.0); LYMPHOCYTES % (AUTO) 12 % (12-44); MEAN CORPUSCULAR HEMOGLOBIN 26 pg (25-34); MEAN CORPUSCULAR HGB CONC 31 g/dL (32-36); MEAN CORPUSCULAR VOLUME 84 fL (80-99); MEAN PLATELET VOLUME 11.1 fL (9.0-12.2); MONOCYTES # (AUTO) 0.8 10^3/uL (0.0-1.0); MONOCYTES % (AUTO) 7 % (0-12); NEUTROPHILS # (AUTO) 9.7 10^3/uL (1.8-7.8); NEUTROPHILS % (AUTO) 79 % (42-75); PLATELET COUNT 324 10^3/uL (130-400); WHITE BLOOD COUNT 12.3 10^3/uL (4.3-11.0)
[2023-06-22 20:23] LABS: BILIRUBIN,URINE NEGATIVE (NEGATIVE); CLARITY,URINE CLOUDY; COLOR,URINE YELLOW; GLUCOSE, URINE (UA) NEGATIVE (NEGATIVE); KETONES,URINE NEGATIVE (NEGATIVE); LEUKOCYTE ESTERASE ,URINE NEGATIVE (NEGATIVE); NITRITE,URINE NEGATIVE (NEGATIVE); PROTEIN,URINE TRACE (NEGATIVE)
[2023-06-22 20:40] LABS: ALANINE AMINOTRANSFERASE 10 U/L (0-55); ALBUMIN 4.6 GM/DL (3.2-4.5); ALKALINE PHOSPHATASE 50 U/L (40-136); BILIRUBIN,TOTAL 0.3 MG/DL (0.1-1.0); BUN/CREATININE RATIO 19; CALCIUM 9.3 MG/DL (8.5-10.1); CARBON DIOXIDE 24 MMOL/L (21-32); CHLORIDE 103 MMOL/L (98-107); GFR ESTIMATED 125; GLUCOSE 90 MG/DL (70-105); LIPASE 27 U/L (8-78); POTASSIUM 4.3 MMOL/L (3.6-5.0); SODIUM 138 MMOL/L (135-145)
[2023-06-22 20:44] LABS: BACTERIA,URINE NEGATIVE /HPF; RBC,URINE >100 /HPF
[2023-06-22] MEDS ORDERED: ONDA8TAB13 SL (20:52)
--- NOTE | 2023-06-22 20:53 | ED General ---
General Chief Complaint: General Problems/Pain Stated Complaint: CHILLS,NAUSEA,HEAD PAIN Source of Information: Patient History of Present Illness Date Seen by Provider: Jun 22, 2023 Time Seen by Provider: 20:04 Initial Comments 23-year-old female presenting with complaints of chills, headache, nausea and vomiting. She had been taking antibiotics since last Tuesday for UTI diagnosed at urgent care. She had missed a few doses of her antibiotics and still has a day or 2 left. She also takes a medicine for acid. She started feeling bad today and felt like she was getting fever and chills. She did not take her pressure but just felt warm and had chills. She felt like she was getting a headache throughout the day. She has not been able to eat or drink well because of the nausea and vomiting. She started her menstrual cycle 2 days ago. She denies any diarrhea or change in her bowels. Timing/Duration: 1-2 Days Severity: Moderate Modifying Factors: worse with Eating Associated Systoms: No Chest Pain, No Cough, No Diaphoresis; Fever/Chills (subjective), Headaches; No Loss of Appetite; Malaise, Nausea/Vomiting; No Seizure, No Shortness of Air, No Syncope, No Weakness Allergies and Home Medications Allergies Coded Allergies: pseudoephedrine (Verified Allergy, Unknown, 11/30/22) Patient Home Medication List Home Medication List Reviewed: Yes Dicyclomine HCl (Dicyclomine HCl) 10 Mg Capsule, 10 MG PO Q6H PRN for abdominal pain Prescribed by: RADHA DE LA TORRE on 11/30/221937 Ondansetron (Ondansetron Odt) 4 Mg Tab.rapdis, 4 MG PO Q6H PRN for NAUSEA/VOMITING Prescribed by: RADHA DE LA TORRE on 11/30/221937 Ondansetron (Ondansetron Odt) 8 Mg Tab.rapdis, 8 MG SL Q6H PRN for NAUSEA/VOMITING Prescribed by: RAJI VÁSQUEZ MD on 12/27/22953 Ondansetron (Ondansetron Odt) 8 Mg Tab.rapdis, 8 MG SL Q6H PRN for NAUSEA/VOMITING Prescribed by: RADHA DE LA TORRE on 06/22/232051 Pantoprazole Sodium (Pantoprazole Sodium) 40 Mg Tablet.dr, 40 MG PO DAILY Prescribed by: RADHA DE LA TORRE on 11/30/221937 Review of Systems Review of Systems Constitutional: see HPI EENTM: no symptoms reported Respiratory: no symptoms reported Cardiovascular: no symptoms reported Gastrointestinal: see HPI Genitourinary: see HPI Musculoskeletal: no symptoms reported Skin: no symptoms reported Psychiatric/Neurological: No Symptoms Reported Past Fmoeaxb-Cliplt-Aukvqm Hx Immunizations Up To Date First/Initial COVID19 Vaccinat: Not currently vaccinated Second COVID19 Vaccination Melvin: Not currently vaccinated Third COVID19 Vaccination Date: Not currently vaccinated Seasonal Allergies Seasonal Allergies: No Past Medical History Surgery/Hospitalization HX: Depression/Anxiety Surgeries: No Respiratory: No Cardiac: No Neurological: No Genitourinary: No Gastrointestinal: No Musculoskeletal: No Endocrine: No HEENT: No Cancer: No Psychosocial: No Integumentary: No Blood Disorders: No Family Medical History No Pertinent Family Hx Physical Exam Vital Signs Vital Signs - First Documented 06/22/23 20:06 Temp 36.9 Pulse 82 Resp 20 B/P (MAP) 136/102 (113) Pulse Ox 100 O2 Delivery Room Air Capillary Refill : Height, Weight, BMI Height: '" Weight: lbs. oz. 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 as Tested Skin: Normal Color, Warm/Dry Progress/Results/Core Measures Suspected Sepsis SIRS Temperature: Pulse: Respiratory Rate: Laboratory Tests 06/22/23 20:10: White Blood Count 12.3H Blood Pressure / Mean: Laboratory Tests 06/22/23 20:10: Creatinine 0.70, Platelet Count 324, Total Bilirubin 0.3 Results/Orders Lab Results Laboratory Tests Test 06/22/23 20:10 06/22/23 20:13 06/22/23 20:15 Range/Units White Blood Count 12.3 H 4.3-11.0 10^3/uL Red Blood Count 4.83 3.80-5.11 10^6/uL Hemoglobin 12.7 11.5-16.0 g/dL Hematocrit 41 35-52 % Mean Corpuscular Volume 84 80-99 fL Mean Corpuscular Hemoglobin 26 25-34 pg Mean Corpuscular Hemoglobin Concent 31 L 32-36 g/dL Red Cell Distribution Width 15.0 H 10.0-14.5 % Platelet Count 324 130-400 10^3/uL Mean Platelet Volume 11.1 9.0-12.2 fL Immature Granulocyte % (Auto) 1 % Neutrophils (%) (Auto) 79 H 42-75 % Lymphocytes (%) (Auto) 12 12-44 % Monocytes (%) (Auto) 7 0-12 % Eosinophils (%) (Auto) 1 0-10 % Basophils (%) (Auto) 0 0-10 % Neutrophils # (Auto) 9.7 H 1.8-7.8 10^3/uL Lymphocytes # (Auto) 1.5 1.0-4.0 10^3/uL Monocytes # (Auto) 0.8 0.0-1.0 10^3/uL Eosinophils # (Auto) 0.1 0.0-0.3 10^3/uL Basophils # (Auto) 0.1 0.0-0.1 10^3/uL Immature Granulocyte # (Auto) 0.1 0.0-0.1 10^3/uL Sodium Level 138 135-145 MMOL/L Potassium Level 4.3 3.6-5.0 MMOL/L Chloride Level 103 98-107 MMOL/L Carbon Dioxide Level 24 21-32 MMOL/L Anion Gap 11 5-14 MMOL/L Blood Urea Nitrogen 13 7-18 MG/DL Creatinine 0.70 0.60-1.30 MG/DL Estimat Glomerular Filtration Rate 125 BUN/Creatinine Ratio 19 Glucose Level 90 70-105 MG/DL Calcium Level 9.3 8.5-10.1 MG/DL Corrected Calcium 8.5-10.1 MG/DL Total Bilirubin 0.3 0.1-1.0 MG/DL Aspartate Amino Transf (AST/SGOT) 19 5-34 U/L Alanine Aminotransferase (ALT/SGPT) 10 0-55 U/L Alkaline Phosphatase 50 40-136 U/L Total Protein 8.0 6.4-8.2 GM/DL Albumin 4.6 H 3.2-4.5 GM/DL Lipase 27 8-78 U/L Influenza Type A (RT-PCR) Not Detected Not Detecte Influenza Type B (RT-PCR) Not Detected Not Detecte SARS-CoV-2 RNA (RT-PCR) Not Detected Not Detecte Urine Color YELLOW Urine Clarity CLOUDY Urine pH 7.0 5-9 Urine Specific [place] 1.020 1.016-1.022 Urine Protein TRACE H NEGATIVE Urine Glucose (UA) NEGATIVE NEGATIVE Urine Ketones NEGATIVE NEGATIVE Urine Nitrite NEGATIVE NEGATIVE Urine Bilirubin NEGATIVE NEGATIVE Urine Urobilinogen 1.0 < = 1.0 MG/DL Urine Leukocyte Esterase NEGATIVE NEGATIVE Urine RBC (Auto) 3+ H NEGATIVE Urine RBC >100 H /HPF Urine WBC NONE /HPF Urine Crystals NONE /LPF Urine Bacteria NEGATIVE /HPF Urine Casts NONE /LPF Urine Mucus NEGATIVE /LPF Urine Culture Indicated NO My Orders Orders - RADHA DE LA TORRE MD Comprehensive Metabolic Panel (06/22/23 20:11) Lipase (06/22/23 20:11) Ua Culture If Indicated (06/22/23 20:11) Ed Iv/Invasive Line Start (06/22/23 20:11) Cbc And Automated Diff (06/22/23 20:11) Covid 19 Inhouse Test (06/22/23 20:11) Influenza A And B By Pcr (06/22/23 20:11) Ns Iv 1000 Ml (Ns Iv 1000 Ml) (06/22/23 20:11) Ondansetron Injection (Ondansetron Inj (06/22/23 20:11) Ketorolac Injection (Ketorolac Injection (06/22/23 20:11) Urine Bedside (06/22/23 20:12) Rx-Ondansetron Po (Rx-Zofran Po) (06/22/23 20:55) Vital Signs/I&O 06/22/23 20:06 Temp 36.9 Pulse 82 Resp 20 B/P (MAP) 136/102 (113) Pulse Ox 100 O2 Delivery Room Air Capillary Refill : Progress Note #1: Progress Note Differential diagnosis includes sepsis, pyelonephritis, gastroenteritis, gastritis, peptic ulcer disease, COVID, influenza, viral syndrome. Obtain peripheral IV access and send labs for complete blood count, comprehensive metabolic profile, urinalysis, lipase. Administer normal saline 1 L IV fluid bolus for hydration, Zofran 4 mg IV for nausea vomiting, Toradol 15 mg IV for headache. Nasal swab to check for COVID and influenza. Progress Note #2: Progress Note White blood cell count was upper limit of normal at 12.3. Her hemoglobin was lower limit of normal at 12.7. She did not have any acute significant electrolyte abnormalities. Her lipase was normal. Her urinalysis had some blood from her being on her menstrual cycle but did not show continued signs of infection. COVID and influenza swab was negative. Patient was feeling better after fluids and treatment in the ED. Counseled on test results and follow-up and return precautions. Prescribed Zofran ODT 4 mg p.o. every 6 hours prn Nausea and vomiting to send with the patient for pills for overnight and prescription to the pharmacy for Zofran ODT 8 mg p.o. every 6 hours as needed nausea vomiting. Hold that since the urine was clear and she only had a few doses of antibiotic left she could just skip taking the rest of those since she has been on close to 10 days of the medication. Back with clinic as needed for continued concerns Departure Impression Primary Impression: Nausea and vomiting in adult patient Additional Impression: Acute viral syndrome Disposition: HOME, SELF-CARE Condition: Stable Departure-Patient Inst. Decision time for Depature: 20:50 Referrals: JOSE MARCELO APRN (PCP) Primary Care Physician [facility] (Family) Primary Care Physician Patient Instructions: Nausea and Vomiting, Adult ED, Viral Syndrome (DC) Add. Discharge Instructions: Stay well hydrated and drink plenty of water. Use the nausea medicine to help keep your stomach settled. Your urine tonight was improved and not showing active infection so the antibiotics have done their job. You were negative for Covid and Influenza but there are other viruses that could be contributing to how you feel. Your labs do not show severe dehydration or sepsis. All discharge instructions reviewed with patient and/or family. Voiced understanding. Scripts Ondansetron (Ondansetron Odt) 8 Mg Tab.rapdis 8 MG SL Q6H PRN for NAUSEA/VOMITING for 5 Days, #20 TAB 0 Refills Prov: RADHA DE LA TORRE MD 06/22/23 Work/School Note: Work Release Form Date Seen in the Emergency Department: Jun 22, 2023 Return to Work: Jun 24, 2023 Restrictions: Return-No Fever (24hrs), Return-No Vomiting(24hrs) RADHA DE LA TORRE MD Jun 22, 2023 20:53
[2023-06-22] MEDS ORDERED: RX-ONDANSETRON 4 MG ODT (ZOFRAN) PPK #4 PO STA (20:55)
== END 2023-06-22 21:02 | disposition home or self-care (01) ==
LOC: EDUNIT# 19:54 → ER FS 19:56
DX: B34.9 Viral infection, unspecified (principal); R11.2 Nausea with vomiting, unspecified; R51.9 Headache, unspecified; R50.9 Fever, unspecified; N39.0 Urinary tract infection, site not specified; Z28.310 Unvaccinated for COVID-19; Z20.822 Contact with and (suspected) exposure to COVID-19
CPT/HCPCS: 36415; 80053; 81000; 83690; 84703; 85025; 87636

== ENCOUNTER 2023-07-30 15:25 | Emergency (ER) | payer OTHER, BC ==
[~2023-07-30] VITALS: Ht 162.5 cm; Wt 71.5 kg
[2023-07-30 15:30] VITALS: BP 143/101
--- NOTE | 2023-07-30 15:35 | ED Fall/Injury ---
General Chief Complaint: Head/Cervical Problems Stated Complaint: HEAD INJ AT WORK | WC History of Present Illness Date Seen by Provider: Jul 30, 2023 Time Seen by Provider: 15:31 Initial Comments 23-year-old female who is an employee at [employer], is here with complaints of a posterior migraine headache and posterior neck pain after she tripped on a box at work and fell backwards hitting the edge of a shopping cart in [employer] today. This occurred around 1:30 PM. Staff at [employer] have sent a paper report describing what is happened including that patient felt nauseous, dizzy and developed a posterior migraine headache with photophobia. In the ER pt appears calm and able to tolerate the room ligth well. Denies LOC, vomiting, dizziness in the ER, light headedness. Pt took a Zofran prior to coming to the ER. Allergies and Home Medications Allergies Coded Allergies: pseudoephedrine (Verified Allergy, Unknown, 11/30/22) Patient Home Medication List Home Medication List Reviewed: Yes Dicyclomine HCl (Dicyclomine HCl) 10 Mg Capsule, 10 MG PO Q6H PRN for abdominal pain Prescribed by: RADHA DE LA TORRE on 11/30/221937 Ondansetron (Ondansetron Odt) 4 Mg Tab.rapdis, 4 MG PO Q6H PRN for NAUSEA/VOMITING Prescribed by: RADHA DE LA TORRE on 11/30/221937 Ondansetron (Ondansetron Odt) 8 Mg Tab.rapdis, 8 MG SL Q6H PRN for NAUSEA/VOMITING Prescribed by: RAJI VÁSQUEZ MD on 12/27/22 0954 Ondansetron (Ondansetron Odt) 8 Mg Tab.rapdis, 8 MG SL Q6H PRN for NAUSEA/VOMITING Prescribed by: RADHA DE LA TORRE on 06/22/232051 Pantoprazole Sodium (Pantoprazole Sodium) 40 Mg Tablet.dr, 40 MG PO DAILY Prescribed by: RADHA DE LA TORRE on 11/30/221937 Review of Systems Review of Systems Constitutional: no symptoms reported Eyes: No Symptoms Reported Ears, Nose, Mouth, Throat: no symptoms reported Respiratory: no symptoms reported Cardiovascular: no symptoms reported Musculoskeletal: see HPI, neck pain Psychiatric/Neurological: Headache Past Nitjdvq-Bsuhce-Cgicny Hx Immunizations Up To Date First/Initial COVID19 Vaccinat: Not currently vaccinated Second COVID19 Vaccination Melvin: Not currently vaccinated Third COVID19 Vaccination Date: Not currently vaccinated Seasonal Allergies Seasonal Allergies: No Past Medical History Surgery/Hospitalization HX: Depression/Anxiety Surgeries: No Respiratory: No Cardiac: No Neurological: No Genitourinary: No Gastrointestinal: No Musculoskeletal: No Endocrine: No HEENT: No Cancer: No Psychosocial: No Integumentary: No Blood Disorders: No Family Medical History No Pertinent Family Hx Physical Exam Vital Signs Vital Signs - First Documented 07/30/23 15:30 Temp 36.7 Pulse 80 Resp 16 B/P (MAP) 143/101 (115) Pulse Ox 100 O2 Delivery Room Air Capillary Refill : Height, Weight, BMI Height: '" Weight: lbs. oz. 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, no motor/sensory deficits, alert, normal mood/affect, oriented x 3 Skin: normal color [place] Coma Score Best Eye Response: (4) Open Spontaneously Best Verbal Response: (5) Oriented Best Motor Response: (6) Obeys Commands [place] Total: 15 Progress/Results/Core Measures Results/Orders My Orders Orders - BRAYDON TOMAS MD Ct Head/Cervical Spine Wo (07/30/23 15:35) Vital Signs/I&O 07/30/23 15:30 Temp 36.7 Pulse 80 Resp 16 B/P (MAP) 143/101 (115) Pulse Ox 100 O2 Delivery Room Air Progress Progress Note : Progress Note FALL/ WORK INJURY: CERVICAL PARASPINAL MUSCLE SPASM - Workman's comp form filled - CT HEAD & C-SPINE: no acute findings; see report - Toradol im STAT given in ER -Advised Ibuprofen every 6 hours for pain, heat application, no heavy lifting for 48 hours. - Follow up with PCP in 7days -The patient was seen in the ED, and treated appropriately to presentation at a specific point in time. Patient is informed that there is a possibility that disease and illness can evolve and change in acuity rapidly or slowly after patient is discharged from the ER. Precautionary advice given to the patient for immediate return to ER if symptoms worsen or do not resolve, and to seek emergen cy care sooner rather than later. Pt also advised on the importance of PCP follow up and compliance with management and follow up plan with PCP and/or specialist, as this is part of the management plan. Pt verbally expressed understanding. Diagnostic Imaging Diagonstic Imaging: CT Plain Films/CT/US/NM/MRI: c-spine, head Comments NAME: SEKOU DO [facility] REC#: [id number] PT STATUS: REG ER : 2001 PHYSICIAN: BRAYDON TOMAS MD ADMIT DATE: 07/30/23/ER FS Signed Date of Exam:07/30/23 CT HEAD/CERVICAL SPINE WO PROCEDURE: CT head and CT cervical spine without contrast. TECHNIQUE: Multiple contiguous axial images were obtained through the brain and cervical spine without the use of intravenous contrast. Sagittal and coronal reformations through the cervical spine were then performed. Auto Exposure Controls were utilized during the CT exam to meet ALARA standards for radiation dose reduction. INDICATION: Fall at work, head pain secondary to fall. COMPARISON: 11/07/2021. FINDINGS: No intracranial hemorrhage. No intracranial mass, mass effect, midline shift, herniation, hydrocephalus or extra-axial fluid collection. No CT evidence of an acute ischemic infarction. The visualized orbits are unremarkable. The visualized paranasal sinuses are clear. The calvarium and extracalvarial soft tissues are unremarkable. Straightening of the normal cervical lordosis without significant anterolisthesis or retrolisthesis. Alignment of the atlantooccipital joint is well maintained. Vertebral body heights are well-maintained. Disc space heights are well-maintained. No acute fracture or dislocation. No destructive osseous process. No high-grade osseous central canal stenosis. No apical pneumothorax. The paraspinal soft tissues are unremarkable IMPRESSION: No acute intracranial abnormality. No acute osseous abnormality of the cervical spine. Straightening of the normal cervical lordosis, which may simply be positional, though can also relate to muscle spasm. Dictated by: Dictated on workstation # [id number] Dict: 07/30/23 1604 Trans: 07/30/[address] [facility] [id number] Interpreted by: TYE NUNO MD Electronically signed by: TYE NUNO MD 07/30/23 163 Departure Impression Primary Impression: Cervical paraspinal muscle spasm Additional Impression: Fall Disposition: 01 HOME, SELF-CARE Condition: Stable Departure-Patient Inst. Referrals: JOSE MARCELO APRN (PCP) Primary Care Physician [facility] (Family) Primary Care Physician Patient Instructions: Muscle Spasms (DC), Using Heat for Pain Add. Discharge Instructions: -Advised Ibuprofen every 6 hours for pain, heat application, no heavy lifting for 48 hours. - Follow up with PCP in 7days All discharge instructions reviewed with patient and/or family. Voiced understanding. BRAYDON TOMAS MD Jul 30, 2023 15:35
--- NOTE | 2023-07-30 16:38 | Diagnostic Imaging Report ---
PROCEDURE: CT head and CT cervical spine without contrast. TECHNIQUE: Multiple contiguous axial images were obtained through the brain and cervical spine without the use of intravenous contrast. Sagittal and coronal reformations through the cervical spine were then performed. Auto Exposure Controls were utilized during the CT exam to meet ALARA standards for radiation dose reduction. INDICATION: Fall at work, head pain secondary to fall. COMPARISON: 11/07/2021. FINDINGS: No intracranial hemorrhage. No intracranial mass, mass effect, midline shift, herniation, hydrocephalus or extra-axial fluid collection. No CT evidence of an acute ischemic infarction. The visualized orbits are unremarkable. The visualized paranasal sinuses are clear. The calvarium and extracalvarial soft tissues are unremarkable. Straightening of the normal cervical lordosis without significant anterolisthesis or retrolisthesis. Alignment of the atlantooccipital joint is well maintained. Vertebral body heights are well-maintained. Disc space heights are well-maintained. No acute fracture or dislocation. No destructive osseous process. No high-grade osseous central canal stenosis. No apical pneumothorax. The paraspinal soft tissues are unremarkable IMPRESSION: No acute intracranial abnormality. No acute osseous abnormality of the cervical spine. Straightening of the normal cervical lordosis, which may simply be positional, though can also relate to muscle spasm. Dictated by: Dictated on workstation # [id number]
[2023-07-30] MEDS ORDERED: KETOROLAC INJ 30 MG/ML VIAL IM ONE (16:45)
== END 2023-07-30 17:00 | disposition home or self-care (01) ==
LOC: EDUNIT# 15:25 → ER FS 15:27
DX: M62.838 Other muscle spasm (principal); W01.10XA Fall on same level from slipping, tripping and stumbling with subsequent striking against unspecified object, initial encounter; Y99.0 Civilian activity done for income or pay
CPT/HCPCS: 70450; 72125; 96372